=== PATIENT | female | born 1985 | race Caucasian/White ===

== ENCOUNTER 2021-05-10 07:16 | Inpatient (IN) | payer OTHER ==
[~2021-05-10] VITALS: Ht 167.6 cm; Wt 86.6 kg
[2021-05-10] VITALS (9 sets, daily range): BP systolic 88–123; BP diastolic 50–68
[~2021-05-10 07:16] MED LIST: IBUP100S44 PO; IBUP80TA PO; MAPA500T2 PO; MONT10TA10 PO; PANT20TA6 PO; PRENTAB66 PO; SING4CHW9 PO; TYLE325T5 PO; ZYRT10CA5 PO; allergy shot SC
[2021-05-10] MEDS ORDERED: OXYTOCIN DRIP 30 UNITS in IV 1 EA IV PRN (08:30)
[2021-05-10] MEDS ORDERED: LR 1,000 ML IV SCH (08:30)
[2021-05-10] MEDS ORDERED: LIDOCAINE 1% MDV 20ML VIAL INFIL PRN (08:30)
[2021-05-10] MEDS ORDERED: METHYLERGONOVINE MALEATE 0.2 MG/ML VIAL (J2210) IM PRN (08:30)
[2021-05-10] MEDS ORDERED: TRANEXAMIC ACID INJection 1,000 MG in NS 100 ML IV PRN (08:30)
--- NOTE | 2021-05-10 08:42 | HPEPDOC ---
Obstetrical History & Physical General Date of Admission May 10, 2021 at 08:24 History of Present Illness 36 yo at 39+3 weeks gestation by LMP of [id number] c/w 9+4 week US prese nts to L&D with the complaint of regular, painful contractions. She denies any bleeding or leakage of fluid. She endorses regular movement. Chief Complaint: Contractions, term Information Provided By: Patient Age: 36 : 8 Term: 5 Pre-term: 0 Abortions: 2 Livin Care Care: Good Care Dating Final EDC: May 14, 2021 Final EDC for Daily Update: May 14, 2021 Final EDC by: LMP LMP: Aug 07, 2020 (KARLENE of [id number] set by LMP of [id number] c/w 9+4 week) Antepartum Course Diagnos(e)s Grand multiparity Advanced maternal age --> declined genetic screening Past Medical History Past Obstetrical History : Past Obstetrical History: Multigravida ( X5 at term. Pelvis proven to 8lbs 8oz.) Type of Delivery: Spontaneous Vaginal Del. Complications: No PROMOTIONS COORDINATOR History: No pertinent history Past Medical History Medical History GERD Surgical History: Gallbladder, Other (Oral surgery) Family History Significant Family History: No pertinent family hx Social History Marital Status: Family situation: Spouse/partner home Psychosocial History: No pertinent psych hx * Smoker: non-smoker Alcohol: Denies Drugs: denies Imunizations Tdap status: current Influenza Status: current Allergies Coded Allergies: [place] (Verified Allergy, Unknown, SWELLING, 05/10/21) BEANS (Verified Allergy, Unknown, SWELLING, 05/10/21) POLLEN (Verified Allergy, Unknown, 05/10/21) latex (Verified Allergy, Unknown, 05/10/21) Medications Scheduled ( Vitamins Plus) Plus Tab, 1 PO DAILY Cetirizine HCl (Zyrtec Allergy) 10 Mg Tab, 10 MG PO DAILY Montelukast Sodium (Montelukast Sodium) 10 Mg Tab, 10 MG PO DAILY Pantoprazole Sodium (Pantoprazole Sodium) 20 Mg Tab, 20 MG PO BID [allergy shot] , SC [id number] Physical Examination Physical Examination GENERAL: Alert and oriented times three. Uncomfortable during contractions. ABDOMEN: Gravid and non-tender to touch. FETUS: Is vertex (VTX) by sterile vaginal examination (SVE) EXTREMITIES: No edema. Laboratory Data Urine Culture: No Growth Pertinent Laboratoy Data Blood Type: B+ RBC Antibody Screen: Negative HIV: Negative Hepatitis B: Negative Hepatitis C: Unknown Rapid Plasma Reagin: Nonreactive Rubella: Immune Varicella: Immune Chlamydia/Gonorrhea: Negative Group B Streptococcus: Negative Quad Screen Test: Declined Cystic Fibrosis: Negative Glucose Tolerance Test: 133 Anatomy Ultrasound Placenta Location: Anterior Normal Anatomy: Yes (EIF noted in left ventricle) Placenta Previa: No Steroid Therapy Steroid Therapy: No Vaginal Examination Dilation: 5 cm Effacement: 80% Station: -2 Cervical Consistency: Soft Cervical Position: Middle Presentation: Cephalic presentation Position: Vertex (occiput) Assessment Heart Rate (FHR): 145 Variability: Moderate Accelerations: Positive Decelerations: None Tocometer Contractions: Yes Frequency: regular Strength: palpated as moderate Assessment/Plan Assessment 36 yo at 39+3 weeks gestation presented to L&D in active labor. Plan Admit for expectant management of labor. Will augment as clinically indicated. Apply IV fluids. Labs per L&D protocol. GBS negative. Clear liquid diet. Patient candidate for intermittent monitoring. Epidural if and when desired. Anticipate . Labor and Delivery Counseling Vaginal / Operative vaginal delivery / C section counseling We will deliver your baby through the vagina with possible assistance of forceps or vacuum device if needed for maternal or indications. Forceps and vacuum are devices that can assist with vaginal delivery when normal pushing efforts cannot achieve delivery on their own or when delivery is needed in an emergency for baby's well-being. Medications may be required to induce or augment (help) your labor in order to achieve a vaginal delivery. An episiotomy may be required to help your baby to delivery vaginally. You may also require repair of any lacerations or tears of your vagina or vulva that are caused by delivery. In some cases, emergencies can occur that require an emergency section delivery so quickly that there may not be enough time to stop and complete consent forms for section. Understand that if this occurs, your providers will discuss the need for a section with you before they proceed with surgery. section is the delivery of your baby through an incision in your abdomen. In some situations, section may be safer to mom and baby than continuing labor and is only performed when clinically indicated. Risks of vaginal delivery include but are not limited to: Bleeding, infection, injury to the vagina, pelvic structures, injury to baby, damage to the uterus, reactions to anesthesia, uterine rupture, risk of hysterectomy for life threa tening bleeding, or . Medications used to induce or augment labor may increase your risk for infection, uterine tachysystole, uterine rupture, heart rate abnormalities, need for emergency delivery or possible hysterectomy, and hemorrhage. Additional risks for use of forceps and vacuum include: increased risk of perineal and vaginal lacerations, risk of urinary or bowel incontinence, increased risk of injury to baby with bruising, scratches, hematomas on the head, or intracranial bleeding. Ms. Coleman appears to understand these risks and elects to proceed with IOL. She also consents to a blood transfusion if necessary. All patient and questions answered. Alice Borges DO, ALICE LAY DO May 10, 2021 08:42
[2021-05-10 09:10] LABS: HEMATOCRIT 35.7 % (36.0-47.0); HEMOGLOBIN 12.1 g/dl (12.0-15.5); MEAN CORPUSCULAR HEMOGLOBIN 29.4 pg (27.0-33.0); MEAN CORPUSCULAR HGB CONC 33.9 g/dl (32.0-36.5); MEAN CORPUSCULAR VOLUME 86.7 fl (80.0-96.0); PLATELET COUNT, AUTOMATED 222 10^3/uL (150-450); RED BLOOD COUNT 4.12 10^6/uL (4.00-5.40); WHITE BLOOD COUNT 11.9 10^3/uL (4.0-10.0)
[2021-05-10] MEDS ORDERED: MEASLES,MUMPS,RUBELLA VACCINE INJ (MMR-II) (90707) SC SCH (11:15)
[2021-05-10] MEDS ORDERED: DOCUSATE SODIUM 100MG CAPSULE PO PRN (11:15)
[2021-05-10] MEDS ORDERED: PROMETHAZINE 25 MG TAB PO PRN (11:15)
[2021-05-10] MEDS ORDERED: DIBUCAINE 1% OINTMENT 30GM TOP PRN (11:15)
[2021-05-10] MEDS ORDERED: RHOGAM 300 MCG (1500 IU) INJ (J2790) IM SCH (11:15)
[2021-05-10] MEDS ORDERED: IBUPROFEN 600MG TAB PO PRN (11:15)
[2021-05-10] MEDS ORDERED: IBUPROFEN 800 MG TAB PO PRN (11:15)
[2021-05-10] MEDS ORDERED: ACETAMINOPHEN TAB 650MG DOSE (2X325MG) PO PRN (11:15)
--- NOTE | 2021-05-10 11:24 | DNPDOC ---
[facility] Delivery Note Delivery Note DATE OF DELIVERY: 10May2021 at 1055 PREDELIVERY DIAGNOSIS: 39+3 weeks gestation and active labor, advanced maternal age, grand multiparity POST DELIVERY DIAGNOSIS: Delivered. PROCEDURE: Spontaneous vaginal delivery DATA WAREHOUSING ENGINEER: Dr. Borges ANESTHESIA: None ESTIMATED BLOOD LOSS: 200 FINDINGS: 9 pound 13 ounce male , Score 9/9 DELIVERY SUMMARY: Jazmine is a 36 yo at 39+3 weeks gestation who presented to L&D in active labor. She progressed quickly into 2nd stage of labor and had a desire to push. The FOB assisted with the delivery under my d irect supervision. With excellent effort, her baby delivered in less than 5 minutes of pushing. Presentation was CHARLI with restitution to ROT. The left anterior shoulder delivered with gentle traction followed easily by the remainder of the body. The infant was dried and stimulated on the field and a bulb suction was used. The three vessel umbilical cord was then clamped and cut by the FOB after appropriate time delay and under my direction. Third stage was completed with gentle traction on on the cord and it was productive of an intact placenta. The uterus was firmed with massage and pitocin was administered IV bolus. Inspection of the cervix, vagina, labia, and perineum revealed no lacerations. The fundus was palpated again and was firm. Sponge, instrument, and needle counts were correct X2. Mother and infant stable and bonding well when I left the room. DO SOFI Deutsch CHRISTOPHER J. DO May 10, 2021 11:24
[2021-05-10] MEDS: ACETAMINOPHEN 500 MG TAB PO PRN ×2 (11:52→18:07)
[2021-05-11] MEDS: ACETAMINOPHEN 500 MG TAB PO PRN ×2 (00:33→18:34)
[2021-05-11 06:10] VITALS: BP 99/53
--- NOTE | 2021-05-11 07:22 | IPNPDOC ---
Progress Note Date of Service: May 11, 2021 Progress Note 36 yo G8 now P6 PPD#1 s/p uncomplicated yesterday morning after being admitted for active labor. She is recovering on the floor. No acute events overnight. Jazmine reports feeling well this AM. She is ambulating, voiding, tolerating a regular diet. Reports cramping with . Lochia is minimal. Vitals - VSS, afebrile, normotensive Abdomen - Fundus firm at U-2. No fundal tenderness Extremities - No edema UO - appropriate Jazmine is doing well and is making an appropriate recovery. She plans on having her son circumcised today. Continue routine care. Anticipate dc home tomorrow. Jony VS, I&O, 24H, Tila Vital Signs/I&O Vital Signs Date Time Temp Pulse Resp B/P (MAP) Pulse Ox O2 Delivery O2 Flow Rate FiO2 05/11/21 06:10 97.3 54 16 99/53 (68) 98 Room Air I&O- Last 24 Hours up to 6 AM 05/11/21 05:59 Intake Total 500 ml Output Total 700 ml Balance -200 ml Laboratory Data 24H LABS Laboratory Tests 2 05/10/21 08:54: Nucleated Red Blood Cells % (auto) 0.0 05/10/21 09:06: Serology Scanned Report Hepatitis B Testing CBC/BMP Laboratory Tests 05/10/21 08:54 ALICE FARAH DO May 11, 2021 07:21
--- NOTE | 2021-05-11 08:49 | IPN ---
PROGRESS NOTE DATE: 05/11/2021 SUBJECTIVE: This patient requested circumcision of her male infant. After discussing risks and benefits of circumcision, the medical and non-medical indications, penile block and aftercare, expressed an understanding of penile block and aftercare and bleeding, signed the consent form, all questions were answered, a 20 minute discussion. We await clearance by the talent advisor.
[2021-05-11] MEDS ORDERED: PRENATAL VITAMINS CHEWABLE TABLET PO SCH (09:00)
--- NOTE | 2021-05-11 17:57 | OBDS ---
[facility] Obstetrical Discharge Sum. A/P, Post Course List any complications DATE OF DELIVERY: 10May2021 at 1055 PREDELIVERY DIAGNOSIS: 39+3 weeks gestation and active labor, advanced maternal age, grand multiparity POST DELIVERY DIAGNOSIS: Delivered. PROCEDURE: Spontaneous vaginal delivery POSTAL SERVICE MAIL PROCESSOR: Dr. Borges ANESTHESIA: None ESTIMATED BLOOD LOSS: 200 FINDINGS: 9 pound 13 ounce male infant, Score 9/9 Follow up in 6 weeks. MELISA COPELAND DO May 11, 2021 17:57
[2021-05-11 18:00] VITALS: BP 111/62
== END 2021-05-11 18:40 | disposition home or self-care (01) | DRG 807 ==
LOC: M LDO 07:16 → M LDI 08:24 → M OBS 13:30
PROVIDERS: ADMIT Obstetrics & Gynecology; ATTEND Obstetrics & Gynecology
PROC: 10E0XZZ Delivery of Products of Conception, External Approach (ICD-10-PCS; principal; 2021-05-10)
DX: O80 Encounter for full-term uncomplicated delivery (principal); Z37.0 Single live birth; Z3A.39 39 weeks gestation of pregnancy; Z91.040 Latex allergy status; Z91.018 Allergy to other foods; Z91.010 Allergy to peanuts